=== PATIENT | male | born 1970 | race Caucasian/White ===

== ENCOUNTER 2017-03-21 15:31 | Observation (INO) | payer BC ==
[2017-03-21 15:35] VITALS: BMI 29.0
[2017-03-21 16:00] LABS: BASO % 0.3 % (0-2.0); EOS % 0.8 % (0-4.5); MCH 29.8 pg (25.7-33.7); MEAN CELL VOLUME 87.6 fl (80-96); MEAN PLT VOLUME 8.5 fl (7.5-11.1); NEUT % 82.4 % (42.8-82.8); PLATELET COUNT 200 K/MM3 (134-434); RDW 13.8 % (11.9-15.9); WHITE BLOOD COUNT 9.6 K/mm3 (4.0-10.0)
[2017-03-21 16:25] LABS: INR 1.11 (0.82-1.09); PROTHROMBIN TIME (PATIENT) 12.5 SEC (9.98-11.88)
[2017-03-21 16:27] LABS: ALBUMIN 4.1 g/dl (3.4-5.0); ANION GAP 9 (8-16); BILIRUBIN,TOTAL 0.4 mg/dL (0.2-1.0); CALCIUM 8.8 mg/dL (8.5-10.1); CO2 29 mmol/L (21-32); GLUCOSE,RANDOM 103 mg/dL (74-106); SGOT/AST 10 U/L (15-37); SGPT/ALT 29 U/L (12-78)
[2017-03-21 16:30] LABS: ALK PHOS 101 U/L (45-117); CPK 215 IU/L (39-308); TROPONIN I < 0.02 ng/ml (0.00-0.05)
--- NOTE | 2017-03-21 16:37 | PDOC ---
History of Present Illness - General Chief Complaint: Chest Pain Stated Complaint: CHEST PAIN Time Seen by Provider: 03/21/17 16:37 - History of Present Illness Initial Comments: 46 year old male with PMH of hld, cad s/p inferior STEMI x2 (10/2012 s/p stent, 08/2014 in stent thrombosis), presenting with retrosternal chest pain for the past 3-4 days that is similar to his first [place]. Patient states that his pain started suddenly 3-4 days prior without inciting event. Describes the pain as substernal 08/13-12/14, non-radiating, non-exertional and without co-presenting SOB, nausea, diaphoresis, or palpitations. However, he does state that this is very similar to his previous [place] episode in 2014. His last cardiac imaging was a SPECT was on 05/2015 that demonstrated a fixed inferior wall motion akinesia and an 03/21/17 17:10 Past History - Past Medical History Allergies/Adverse Reactions: Allergies Allergy/AdvReac Type Severity Reaction Status Date / Time Penicillins Allergy unknown Verified 03/21/17 15:34 Home Medications: Ambulatory Orders Aspirin [ASA -] 81 mg PO DAILY 05/29/14 Atorvastatin Ca [Lipitor] 40 mg PO HS 05/29/14 Metoprolol Succinate [Toprol Xl] 75 mg PO DAILY 05/29/14 Ticagrelor [Brilinta] 90 mg PO BID 10/26/14 Cardiac Disorders: Yes ([place]: 10/2012) COPD: No HTN: Yes Hypercholesterolemia: Yes - Surgical History Cardiac Surgery: Yes (STENT X 1: 10/2012) - Suicide/Smoking/Psychosocial Hx Smoking Status: No Smoking History: Never smoked Have you smoked in the past 12 months: No Number of Cigarettes Smoked Daily: 0 Hx Alcohol Use: Yes (SOCIAL) Drug/Substance Use Hx: No Substance Use Type: Alcohol *Physical Exam - Vital Signs Last Vital Signs Temp Pulse Resp BP Pulse Ox 99.2 F 79 17 109/77 98 03/21/17 15:32 03/21/17 16:27 03/21/17 16:27 03/21/17 16:27 03/21/17 16:27 ED Treatment Course - LABORATORY CBC & Chemistry Diagram: 03/21/17 15:53 03/21/17 15:53 - ADDITIONAL ORDERS Additional order review: Laboratory Results 03/21/17 03/21/17 15:53 15:53 PT with INR 12.50 H INR 1.11 Sodium 139 Potassium 3.7 Chloride 101 Carbon Dioxide 29 Anion Gap 9 BUN 11 D Creatinine 1.0 Creat Clearance w eGFR > 60 Random Glucose 103 Calcium 8.8 Total Bilirubin 0.4 D AST 10 L D ALT 29 D Alkaline Phosphatase 101 Creatine Kinase 215 Troponin I < 0.02 Total Protein 8.0 Albumin 4.1 03/21/17 15:53 RBC 4.33 MCV 87.6 MCHC 34.0 RDW 13.8 MPV 8.5 Neutrophils % 82.4 Lymphocytes % 7.9 L D Monocytes % 8.6 Eosinophils % 0.8 Basophils % 0.3 Medical Decision Making - Medical Decision Making 03/21/17 18:32 Spoke to covering physician for Dr. Moffett and he didn't feel that heparin drip was indicated. Will admit patient for tele obs. *DC/Admit/Observation/Transfer - Referrals Referrals: Angelo Meade MD [Primary Care Provider] - - Patient Instructions - Post Discharge Activity
[2017-03-21] MEDS ORDERED: morphine CARPU-JECT 4 MG/1 ML DISP.SYRIN IVPUSH ONE (16:48)
--- NOTE | 2017-03-21 16:48 | PDOC ---
Attending Attestation - HPI HPI: 03/21/17 18:14 46 y/o M with a PMHx of HTN, HLD, COPD, [place] x2 (10/2012, 05/2014) presents to the ED with substernal, non-radiating, non-pleuritic non-exertional chest pain today. Patient did not have any sublingual nitroglycerin left. He usually take Aleve for pain, but did not take any today. He states this pain is similar to the pain he experienced during his last [place]. He reports occasional rectal bleeding. Denies nausea, vomiting, diarrhea. Denies fever, chills. <Mariiln Stevens - Last Filed: 03/21/17 18:14> - Resident Resident Name: Tani Rai - ED Attending Attestation I have performed the following: I have examined & evaluated the patient, The case was reviewed & discussed with the resident, I agree w/resident's findings & plan, Exceptions are as noted - Physicial Exam PE: GENERAL: Awake, alert, and fully oriented, in no acute distress HEAD: No signs of trauma EYES: PERRLA, EOMI, sclera anicteric, conjunctiva clear ENT: Auricles normal inspection, hearing grossly normal, nares patent, oropharynx clear without exudates. Moist mucosa NECK: Normal ROM, supple, no lymphadenopathy, JVD, or masses LUNGS: Breath sounds equal, clear to auscultation bilaterally. No wheezes, and no crackles HEART: Regular rate and rhythm, normal S1 and S2, no murmurs, rubs or gallops ABDOMEN: Soft, nontender, normoactive bowel sounds. No guarding, no rebound. No masses EXTREMITIES: Normal range of motion, no edema. No clubbing or cyanosis. No cords, erythema, or tenderness NEUROLOGICAL: Cranial nerves II through XII grossly intact. Normal speech, normal gait SKIN: Warm, Dry, normal turgor, no rashes or lesions noted. - Medical Decision Making Pt stating the chest pain today is similar to the pain from his second [place]. He is high risk (family history of MIs at very young ages, plus his own history of [place] and a clotted stent in the past). Will admit to tele. <Cori Acosta - Last Filed: 03/22/17 11:20>
[2017-03-21] MEDS ORDERED: morphine SULFATE 4 MG/ML VIAL ONE (16:49)
[2017-03-21] MEDS ORDERED: ASPIRIN 81 MG CHEWABLE TABLETS PO ONE (16:49)
[2017-03-21] MEDS ORDERED: ASPIRIN 81 MG CHEWABLE TABLETS ONE ×2 (16:49→16:54)
[2017-03-21] MEDS ORDERED: NITROGLYCERIN 2% OINTMENT - 1GM PACKET TD ONE ×2 (18:03→18:09)
[2017-03-21] MEDS ORDERED: NITROGLYCERIN SUBLINGUAL 1/150 0.4 MG TAB SL PRN (18:12)
[2017-03-21 21:51] LABS: CHOLESTEROL 134 mg/dL (50-200)
[2017-03-21] MEDS: ATORVASTATIN CA 40 MG TABLET (FP) PO SCH (22:14)
[2017-03-21] MEDS: TICAGRELOR 90 MG TABLET PO SCH (22:14)
[2017-03-21] MEDS ORDERED: morphine SULFATE 4 MG/ML VIAL IVPUSH PRN (22:33)
[2017-03-21] MEDS ORDERED: ONDANSETRON 4 MG/2 ML VIAL IVPB PRN (22:34)
[2017-03-22 00:36] LABS: CPK 178 IU/L (39-308); TROPONIN I < 0.02 ng/ml (0.00-0.05)
[2017-03-22 00:55] LABS: CHOLESTEROL 123 mg/dL (50-200)
[2017-03-22] MEDS ORDERED: PT OWN MED DRAWER 7, Y5N ONE (09:00)
[2017-03-22 09:15] LABS: BASO % 0.4 % (0-2.0); MCH 29.4 pg (25.7-33.7); MCHC 33.3 g/dl (32.0-35.9); MEAN CELL VOLUME 88.5 fl (80-96); MEAN PLT VOLUME 9.1 fl (7.5-11.1); NEUT % 75.8 % (42.8-82.8); PLATELET COUNT 166 K/MM3 (134-434); RDW 14.3 % (11.9-15.9); WHITE BLOOD COUNT 8.5 K/mm3 (4.0-10.0)
[2017-03-22] MEDS: METOPROLOL SUCCINATE 50 MG TAB.SR.24H (FP) PO SCH (09:18)
[2017-03-22] MEDS: ASPIRIN 81 MG CHEWABLE TABLETS PO SCH (09:18)
[2017-03-22] MEDS: TICAGRELOR 90 MG TABLET PO SCH ×2 (09:18→21:18)
[2017-03-22 09:28] LABS: ANION GAP 8 (8-16); CALCIUM 8.2 mg/dL (8.5-10.1); CO2 30 mmol/L (21-32); GLUCOSE,RANDOM 91 mg/dL (74-106)
[2017-03-22 09:39] LABS: CREATININE 1.1 mg/dL (0.7-1.3); THYROID STIMULATING HORMONE 2.14 uIU/ml (0.358-3.74)
--- NOTE | 2017-03-22 09:45 | CONSULT ---
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) Initial ECG with No acute infarct Initital troponin neg - Past Medical History Cardio/Vascular: Yes: Hyperlipdemia, [place] - Alcohol/Substance Use Hx Alcohol Use: Yes (SOCIAL) - Smoking History Smoking history: Never smoked Have you smoked in the past 12 months: No Aproximately how many cigarettes per day: 0 - Social History Occupation: Works in [place] at [employer] Home Medications - Allergies Allergies/Adverse Reactions: Allergies Allergy/AdvReac Type Severity Reaction Status Date / Time Penicillins Allergy unknown Verified 03/21/17 15:34 - Home Medications Home Medications: Ambulatory Orders Aspirin [ASA -] 81 mg PO DAILY 05/29/14 Atorvastatin Ca [Lipitor] 40 mg PO HS 05/29/14 Metoprolol Succinate [Toprol Xl] 75 mg PO DAILY 05/29/14 Ticagrelor [Brilinta] 90 mg PO BID 10/26/14 Family Disease History - Family Disease History Family Disease History: Heart Disease: Grandparent, Father, Mother Physical Exam Vital Signs: Vital Signs Temperature 99.5 F 03/22/17 08:00 Pulse Rate 75 03/22/17 08:00 Respiratory Rate 20 03/22/17 08:00 Blood Pressure 104/57 03/22/17 08:00 O2 Sat by Pulse Oximetry (%) 99 03/22/17 07:45 Constitutional: Yes: No Distress Eyes: Yes: WNL HENT: Yes: WNL Neck: Yes: WNL Cardiovascular: Yes: Regular Rate and Rhythm Respiratory: Yes: WNL, CTA Bilaterally Gastrointestinal: Yes: Normal Bowel Sounds, Tenderness ((+) tenderness in epigastric area (reporoducible)) Musculoskeletal: Yes: WNL Extremities: Yes: WNL Edema: No Labs: CBC, BMP 03/22/17 07:00 03/22/17 07:00 Imaging - Results EKG: Image Reviewed (ECG at 03/21/2017 at 15:36 NSR with inferior Qs. ECG on at 22:43 SR with inferior Qs.) Assessment/Plan 46 yo male with known CAD s/p prior PCI with atypical chest pain 1) Chest pain -Has atypical quality (reproducible on palpation in epigastric area) -Initial ECG unremarkable and 1st troponin negative -Would d/c Nitropaste -Continue DAPT with asa and ticag, bb and statin -Will give trial of NSAID for MSK etiology and PPI -Dr. Mathew to see in AM who knows him well and can review his latest stress test. -Should have one more troponin checked. *
[2017-03-22] MEDS: PANTOPRAZOLE 40 MG TABLET (FP) PO SCH (09:59)
[2017-03-22] MEDS ORDERED: IBUPROFEN 400 MG TABLET (FP) PO ONE (10:00)
--- NOTE | 2017-03-22 11:40 | HP ---
Admitting History and Physical - Primary Care Physician PCP: Angelo Meade - Admission Chief Complaint: Chest Pain History of Present Illness: 46 yrs old man active H/O CAD IW STEMI 2012 with NISSA to LPL1, then stent thrombosis in 2014 with rpt NISSA to LPL1, presents to the ED with substernal, non-radiating, non-pleuritic non-exceptional chest pain today. Patient did not have any sublingual nitroglycerin left. He usually take Aleve for pain, but did not take any today. He states this pain is similar to the pain he experienced during his last [place]. He reports occasional rectal bleeding. Denies nausea, vomiting, diarrhea. Denies fever, chills.Patient says characteristics of pain simillar to previous [place] pain although pain aggravated with pressure on lower sternum and bending chest wall, patient dis some [employer] 5-7 days ago, - Past Medical History Cardiovascular: Yes: Hyperlipdemia, [place] - Smoking History Smoking history: Never smoked Have you smoked in the past 12 months: No Aproximately how many cigarettes per day: 0 - Alcohol/Substance Use Hx Alcohol Use: Yes (SOCIAL) - Social History Occupation: Works in [employer] Home Medications - Allergies Allergies/Adverse Reactions: Allergies Allergy/AdvReac Type Severity Reaction Status Date / Time Penicillins Allergy unknown Verified 03/21/17 15:34 - Home Medications Home Medications: Ambulatory Orders Aspirin [ASA -] 81 mg PO DAILY 05/29/14 Atorvastatin Ca [Lipitor] 40 mg PO HS 05/29/14 Metoprolol Succinate [Toprol Xl] 75 mg PO DAILY 05/29/14 Ticagrelor [Brilinta] 90 mg PO BID 10/26/14 Family Disease History - Family Disease History Family Disease History: Heart Disease: Grandparent, Father, Mother Review of Systems - Review of Systems Constitutional: reports: No Symptoms. denies: Chills, Diaphoresis HENT: denies: Difficult Swallowing, Ear Discharge Neck: denies: Decreased ROM, Lumps, Pain on Movement Cardiovascular: reports: Chest Pain. denies: Edema, Palpitations, Shortness of Breath Respiratory: denies: Cough, Exercise Intolerance, Hemoptysis Gastrointestinal: denies: Abdominal Pain, Bloating, Constipation Genitourinary: denies: Burning, Discharge Musculoskeletal: denies: Back Pain, Crepitus Integumentary: denies: Blister, Bruising Neurological: denies: Change in LOC, Change in Speech, Confusion, Dizziness Endocrine: denies: Excessive Sweating, Flushing Hematology/Lymphatic: denies: Easily Bruised, Excessive Bleeding Psychiatric: denies: Altered Sleep Pattern, Anxiety Pain Intensity: 6 Physical Examination Vital Signs: Vital Signs Temperature 99.5 F 03/22/17 08:00 Pulse Rate 75 03/22/17 08:00 Respiratory Rate 20 03/22/17 08:00 Blood Pressure 104/57 03/22/17 08:00 O2 Sat by Pulse Oximetry (%) 99 03/22/17 07:45 Middle aged man comfortable not in distress HEENT: Mm moist, no anemia, PERRLA EOMI NECK: No JVD No Bruit CHEST:Tenderness around lower sternum, CTA B/L CVS: S1S2 r no m/g/r ABD: No distention, non tender Bs + EXT: No edema feet, no calf tenderness, Pulses + PRODUCE INSPECTOR: [id number] focal Labs: CBC, BMP 03/22/17 07:00 03/22/17 07:00 Imaging - Results X-ray: Report Reviewed (normal) EKG: Report Reviewed (62 NSR with inferior Qs. ECG on 03/21/2017 at 22:43 SR with inferior Qs.)) Problem List - Problems (1) Chest pain Assessment/Plan: Atypical reproducible will cont pain med Motrin and percocet PRN, normal serial , CE and non dynamic EKG F/U TSH, Lipid serial trop I , ECHO and cardiology input cont all home meds Code(s): R07.9 - CHEST PAIN, UNSPECIFIED (2) CAD (coronary artery disease) Assessment/Plan: s/p stent twice cont all home medications Code(s): I25.10 - ATHSCL HEART DISEASE OF [place] CORONARY ARTERY W/O ANG PCTRS Qualifiers: Coronary Disease-Associated Artery/Lesion type: [place] artery [place] vs. transplanted heart: [place] heart Associated angina: with unspecified angina Qualified Code(s): I25.119 - Atherosclerotic heart disease of [place] coronary artery with unspecified angina pectoris (3) HTN (hypertension) Assessment/Plan: well controlled cont all home meds Code(s): I10 - ESSENTIAL (PRIMARY) HYPERTENSION (4) High blood cholesterol level Assessment/Plan: on statin Code(s): E78.00 - PURE HYPERCHOLESTEROLEMIA, UNSPECIFIED
[2017-03-22 21:18] LABS: CPK 131 IU/L (39-308); TROPONIN I < 0.02 ng/ml (0.00-0.05)
[2017-03-22] MEDS: ATORVASTATIN CA 40 MG TABLET (FP) PO SCH (21:18)
--- NOTE | 2017-03-22 22:38 | PN ---
Progress Note, Physician Chief Complaint: cp History of Present Illness: states the cp/heaviness was sternum location, worse with inspiration. better when stood up. mild R scapular and L lower back pain as well, not pleuritic. similar quality to prior [place] pain, though can't recall if that was pleuritic no sob, palpit, syncope cp now resolved - Current Medication List Current Medications: Active Medications Aspirin (Asa -) 81 mg PO DAILY [facility] Last Admin: 03/22/17 09:18 Dose: 81 mg Atorvastatin Calcium (Lipitor -) 40 mg PO HS [facility] Last Admin: 03/22/17 21:18 Dose: 40 mg Metoprolol Succinate (Toprol Xl -) 75 mg PO DAILY [facility] Last Admin: 03/22/17 09:18 Dose: 75 mg Nitroglycerin (Nitrostat -) 0.4 mg SL Q5M PRN PRN Reason: FOR CHEST PAIN Last Admin: 03/21/17 21:17 Dose: 0.4 mg Ondansetron HCl (Zofran Injection) 4 mg IVPB Q6H PRN PRN Reason: NAUSEA AND/OR VOMITING Pantoprazole Sodium (Protonix -) 40 mg PO DAILY [facility] Last Admin: 03/22/17 09:59 Dose: 40 mg Ticagrelor (Brilinta -) 90 mg PO BID [facility] Last Admin: 03/22/17 21:18 Dose: 90 mg - Objective Vital Signs: Vital Signs Temperature 97.0 F L 03/22/17 21:38 Pulse Rate 68 03/22/17 21:38 Respiratory Rate 20 03/22/17 21:38 Blood Pressure 127/67 03/22/17 21:38 O2 Sat by Pulse Oximetry (%) 100 03/22/17 21:40 Constitutional: Yes: Well Nourished, No Distress, Calm Cardiovascular: Yes: Regular Rate and Rhythm, S1, S2. No: Gallop, Murmur, Rub Respiratory: Yes: Regular, CTA Bilaterally. No: Accessory Muscle Use, Rales, Wheezes Extremities: No: Cold Edema: No Neurological: Yes: Alert, Oriented Psychiatric: No: Agitated Labs: CBC, BMP 03/22/17 07:00 03/22/17 07:00 INR, PTT INR 1.11 (0.82-1.09) 03/21/17 15:53 - ....Imaging EKG: Other (tele: NSR) Assessment/Plan EKG #1: NSR, inferior q waves with nonsp TWAs (no change vs prior in office ) #2: no change [facility] 2014: thrombotic occlusion LPL 1, in-stent--Promus NISSA. 50-60% mid LAD, 50- 60% d LAD MPI 05/22: 9:59 min (11 METs). no STs. inferolateral scar with no ischemia. EF 56 % (inferolateral akinesis) home meds: aspirin, ticagrelor 90 bid, lovaza 2 bid, atorva 80, atenolol 25 h/o CAD, here with atypical chest pain -prior h/o IW STEMI 2012 with NISSA to LPL1, then stent thrombosis (when plavix stopped after 19 months post-PCI) in 2014 with rpt NISSA to LPL1 -no angina or ischemia since, preserved EF -here with atypical cp, reproducible on palpation in epigastric area initially. desription of sx's is non-anginal -serial ecg's unchanged vs baseline (no ischemia), trop neg x3 -cp resolved here, ? due to NSAID trial. -no rub or ekg changes, suspect mskel etiology > pericarditis. -ok for d/c home, cont home meds (plan is to continue DAPT at least 3 yrs) -would not rec standing NSAID regimen. -will draw CRP for baseline prior to discharge--pt informed to call me if pain recurs, and he understood instrxns
[2017-03-23] MEDS ORDERED: PT OWN MED DRAWER 7, Y5N ONE (09:39)
[2017-03-23 09:55] VITALS: BP 120/66; PULSE 76; TEMP 98.2
[2017-03-23] MEDS: PANTOPRAZOLE 40 MG TABLET (FP) PO SCH (09:56)
[2017-03-23] MEDS: ASPIRIN 81 MG CHEWABLE TABLETS PO SCH (09:56)
[2017-03-23] MEDS: METOPROLOL SUCCINATE 50 MG TAB.SR.24H (FP) PO SCH (09:57)
[2017-03-23] MEDS: TICAGRELOR 90 MG TABLET PO SCH (09:57)
--- NOTE | 2017-03-23 12:14 | DS ---
Physical Examination Vital Signs: Vital Signs Temperature 36.8 C 03/23/17 08:00 Pulse Rate 76 03/23/17 08:00 Respiratory Rate 14 03/23/17 09:00 Blood Pressure 120/66 03/23/17 08:00 O2 Sat by Pulse Oximetry (%) 100 03/23/17 09:00 Constitutional: Yes: Well Nourished, No Distress, Calm Cardiovascular: Yes: Regular Rate and Rhythm. No: Gallop, Murmur, Rub Respiratory: Yes: Regular, CTA Bilaterally. No: Rales, Rhonchi, Wheezes Gastrointestinal: Yes: Normal Bowel Sounds, Soft. No: Distention, Tenderness Extremities: Yes: WNL Edema: No Labs: CBC, BMP 03/22/17 07:00 03/22/17 07:00 Discharge Summary Reason For Visit: CP 2/ HIGH RISK OF ACUTE Current Active Problems Chest pain (Acute) HTN (hypertension) (Acute) High blood cholesterol level (Acute) Hospital Course: (1) Chest pain Code(s): R07.9 - CHEST PAIN, UNSPECIFIED (2) CAD (coronary artery disease) Code(s): I25.10 - ATHSCL HEART DISEASE OF [place] CORONARY ARTERY W/O ANG PCTRS Qualifiers: Coronary Disease-Associated Artery/Lesion type: [place] artery [place] vs. transplanted heart: [place] heart Associated angina: with unspecified angina Qualified Code(s): I25.119 - Atherosclerotic heart disease of [place] coronary artery with unspecified angina pectoris (3) HTN (hypertension) Code(s): I10 - ESSENTIAL (PRIMARY) HYPERTENSION (4) High blood cholesterol level Code(s): E78.00 - PURE HYPERCHOLESTEROLEMIA, UNSPECIFIED Mr Cuadra is a pleasant 46 year old male who comes in with chest pain. He was admitted to telemetry under observation. Cardiac enzyme were checked and negative. He had an ECHO which was read as normal. He was seen by cardiology, will have a CRP sent prior to discharge. He is currently stable for discharge after CRP is sent with follow up with his PCP and cardiology. Condition: Stable - Instructions Diet, Activity, Other Instructions: low fat diet. Resume previous activity Referrals: Angelo Meade MD [Primary Care Provider] - Guido Mathew MD [Staff Physician] - Disposition: HOME - Home Medications Comprehensive Discharge Medication List: Ambulatory Orders Aspirin [ASA -] 81 mg PO DAILY 05/29/14 Atorvastatin Ca [Lipitor] 40 mg PO HS 05/29/14 Metoprolol Succinate [Toprol Xl] 75 mg PO DAILY 05/29/14 Ticagrelor [Brilinta] 90 mg PO BID 10/26/14 Nitroglycerin Sublingual [Nitrostat -] 0.4 mg SL Q5M PRN #30 tab 03/23/17
--- NOTE | 2017-03-24 01:40 | EKG ---
Test Reason : Blood Pressure : / mmHG Vent. Rate : 076 BPM Atrial Rate : 076 BPM P-R Int : 138 ms QRS Dur : 084 ms QT Int : 350 ms P-R-T Axes : 050 035 -21 degrees QTc Int : 393 ms SINUS RHYTHM BASELINE ARTIFACT POSSIBLE INFERIOR INFARCT (CITED ON OR BEFORE 21-MAR-2017) ABNORMAL ECG WHEN COMPARED WITH ECG OF 21-MAR-2017 15:36, NO SIGNIFICANT CHANGE WAS FOUND Confirmed by CLIFFORD DELVALLE, MARY ([id number]) on 03/24/2017 1:40:17 AM Referred By: Confirmed By:MARY HORTON MD
--- NOTE | 2017-03-24 01:41 | EKG ---
Test Reason : Blood Pressure : / mmHG Vent. Rate : 088 BPM Atrial Rate : 088 BPM P-R Int : 138 ms QRS Dur : 094 ms QT Int : 328 ms P-R-T Axes : 058 047 008 degrees QTc Int : 396 ms NORMAL SINUS RHYTHM POSSIBLE INFERIOR INFARCT , AGE UNDETERMINED ABNORMAL ECG WHEN COMPARED WITH ECG OF 21-MAY-2015 08:57, T WAVE VARIATION Confirmed by MARY HORTON MD ([id number]) on 03/24/2017 1:41:06 AM Referred By: Confirmed By:MARY HORTON MD
== END 2017-03-23 14:11 | disposition home or self-care (01) ==
LOC: JER 15:31 → JERBED 18:19 → J4W 20:30
PROVIDERS: ADMIT Internal Medicine; ATTEND Internal Medicine
PROC: 3E033NZ Introduction of Analgesics, Hypnotics, Sedatives into Peripheral Vein, Percutaneous Approach (ICD-10-PCS; principal; 2017-03-21)
DX: R07.89 Other chest pain (principal); I10 Essential (primary) hypertension; I25.119 Atherosclerotic heart disease of native coronary artery with unspecified angina pectoris; I25.2 Old myocardial infarction; E78.5 Hyperlipidemia, unspecified; Z95.5 Presence of coronary angioplasty implant and graft; Z88.0 Allergy status to penicillin; Z79.82 Long term (current) use of aspirin
CPT/HCPCS: 36415; 71010-TC; 80048; 80053; 80061; 82272; 82550; 82553; 83036; 83605; 83721; 84443; 84484; 85025; 85610; 86140; 93005; 93010; 93306-TC; 99285-25; G0378

== ENCOUNTER 2019-10-13 18:43 | Inpatient (IN) | payer BC ==
--- NOTE | 2019-10-13 18:52 | PDOC ---
Rapid Medical Evaluation Time Seen by Provider: 10/13/19 18:44 Medical Evaluation: Allergies Allergy/AdvReac Type Severity Reaction Status Date / Time Penicillins Allergy unknown Verified 03/21/17 15:34 10/13/19 18:44 I performed a brief in-person evaluation of this patient. Pt is a 49 y/o male who presents to the ED with MSCP that started about 2:30pm. He took Nitro which helped for a few minutes, took another Nitro with relief for a few minutes and the pain returned. He had 2 MIs in the past and has 2 stents placed. Has HTN and HLD. Pertinent physical exam findings: speaking in full and complete sentences, nontoxic, no respiratory distress I have ordered the following: cardiac labs, saline lock, ekg, cxr Patient to proceed to ED for further evaluation. Discharge Disposition - Diagnosis Chest pain - Referrals - Patient Instructions - Post Discharge Activity
[2019-10-13 18:54] VITALS: BMI 29.7
[2019-10-13 19:48] LABS: BASO % 0.3 % (0-2.0); EOS % 0.7 % (0-4.5); HEMATOCRIT 36.2 % (35.4-49); HEMOGLOBIN 12.5 GM/dL (11.7-16.9); LYMPH % 11.8 % (8-40); MCH 31.3 pg (25.7-33.7); MCHC 34.4 g/dl (32.0-35.9); MEAN PLT VOLUME 8.6 fl (7.5-11.1); MONO % 7.1 % (3.8-10.2); NEUT % 80.1 % (42.8-82.8); PLATELET COUNT 159 K/MM3 (134-434); RBC 3.98 M/mm3 (4.00-5.60); RDW 13.7 % (11.9-15.9); WHITE BLOOD COUNT 8.8 K/mm3 (4.0-10.0)
--- NOTE | 2019-10-13 19:52 | PN ---
Progress Note (short form) - Note Progress Note: Patient called service with chest pain since early afternoon and was referred to ER for evaluation. Briefly, 49M with known CAD s/p inferior STEMI 2012 and again in 2014 with stent thrombosis. Developed central chest pain/tightness [place] beach which he described as similar to his anginal /[place] pain but less intense and without the nausea/SOB and back pain he had. It frightened him enough to take 2 SLNTG which he said completely relieved the pain for a few minutes, then recurred. He also describes a pleuritic component but no cough/fever/chills/GI symptoms. REC: 1. Telemetry 2. Serial ECGs/enzymes/CXR/Labs/echo in AM 3. Home meds for now. 4. SLNTG PRN 5. Further diagnostic plan pending overnight clinical course/cardiac enzymes. 6. Keep NPO after 12am 7. Discussed with ER attending. Full consult to follow in AM
[2019-10-13] MEDS ORDERED: ASPIRIN 81 MG CHEWABLE TABLETS PO ONE (19:54)
[2019-10-13 19:56] LABS: INR 1.03 (0.83-1.09); PROTHROMBIN TIME (PATIENT) 12.1 SEC (9.7-13.0)
[2019-10-13 19:58] LABS: ACTIVATED PTT 28.1 SECONDS (25.2-36.5)
[2019-10-13] MEDS ORDERED: ASPIRIN 81 MG CHEWABLE TABLETS ONE (20:00)
[2019-10-13] MEDS ORDERED: NITROGLYCERIN SUBLINGUAL 1/150 0.4 MG TAB SL PRN (20:01)
[2019-10-13 20:24] LABS: ALBUMIN 4.1 g/dl (3.4-5.0); ALK PHOS 89 U/L (45-117); ANION GAP 11 MMOL/L (8-16); BILIRUBIN,TOTAL 0.8 mg/dL (0.2-1); BLOOD UREA NITROGEN 17.3 mg/dL (7-18); CHLORIDE 103 mmol/L (98-107); CO2 27 mmol/L (21-32); CREATININE 1.4 mg/dL (0.55-1.3); GLUCOSE,RANDOM 133 mg/dL (74-106); MAGNESIUM 2.1 mg/dL (1.8-2.4); POTASSIUM 3.4 mmol/L (3.5-5.1); SGOT/AST 21 U/L (15-37); SGPT/ALT 50 U/L (13-61); SODIUM 141 mmol/L (136-145); TOT PROT 7.5 g/dl (6.4-8.2)
--- NOTE | 2019-10-13 20:24 | PDOC ---
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 The chest pain is non-exertional, non-radiating, with no accompanying SOB, nausea, vomiting, or diaphoresis. He also admits to pleuritic chest pain. He went home and took .4mg of nitroglycerin which relived the tightness for 5 minutes. He reports that this feels like his second DC which also only presented with chest tightness, just not as severe. He spoke with Dr. Valderrama who is covering for Dr. Mathew who told him to come to the ER for evaluation. 10/13/19 20:24 PMH: STEMI x2 s/p 2 stents (2012 and thrombosis of stents in 2014), HTN, HLD Meds: See nurses note Allergies: Denies 10/14/19 21:06 Past History - Medical History Allergies/Adverse Reactions: Allergies Allergy/AdvReac Type Severity Reaction Status Date / Time Penicillins Allergy unknown Verified 10/13/19 18:54 Home Medications: Ambulatory Orders Aspirin [ASA -] 81 mg PO DAILY 05/29/14 Atorvastatin Ca [Lipitor] 40 mg PO HS 05/29/14 Nitroglycerin Sublingual [Nitrostat -] 0.4 mg SL Q5M PRN #30 tab 03/23/17 Allopurinol [Zyloprim -] 100 mg PO DAILY 10/14/19 Atenolol [Tenormin -] 25 mg PO DAILY 10/14/19 Clopidogrel Bisulfate [Clopidogrel] 75 mg PO Q3D 10/14/19 Lisinopril [Prinivil] 5 mg PO DAILY 30 Days #30 tablet 10/14/19 Cardiac Disorders: Yes (DC: 10/2012) COPD: No HTN: Yes Hypercholesterolemia: Yes - Surgical History Cardiac Surgery: Yes (STENT X 1: 10/2012) - Psycho-Social/Smoking History Smoking Status: No Smoking History: Never smoked Have you smoked in the past 12 months: No Number of Cigarettes Smoked Daily: 0 Information on smoking cessation initiated: No - Substance Abuse Hx (Audit-C & DAST Scrn) How often the patient has a drink containing alcohol: Monthly or less Number of drinks the patient has on a typical day: 3 or 4 How often the patient has six or more drinks on one occasion: Never Score: In Men: 4 or > Positive; In Women: 3 or > Positive: 2 Screen Result (Pos requires Nsg. Audit-10AR): Negative In the last yr the pt used illegal drug/Rx for NonMed reason: No Score: Yes response is considered Positive: 0 Screen Result (Positive result requires Nsg. DAST-10): Negative Review of Systems - Review of Systems Able to Perform ROS?: Yes Constitutional: No: Chills, Diaphoresis, Weakness HEENTM: No: Eye Pain, Blurred Vision Respiratory: No: SOB with Exertion, Wheezing Cardiac (ROS): Yes: Chest Pain, Chest Tightness. No: Palpitations ABD/GI: No: Constipated, Diarrhea : No: Burning, Dysuria Musculoskeletal: No: Joint Pain, Muscle Weakness Neurological: No: Numbness, Paresthesia Endocrine: No: Excessive Sweating, Flushing Hematologic/Lymphatic: Yes: Blood Clots. No: Anemia *Physical Exam - Vital Signs Last Vital Signs Temp Pulse Resp BP Pulse Ox 99.6 F 97 H 18 158/78 100 10/13/19 18:51 10/13/19 18:51 10/13/19 18:51 10/13/19 18:51 10/13/19 18:51 - Physical Exam General Appearance: Yes: Appropriately Dressed, Mild Distress HEENT: positive: EOMI Neck: positive: Trachea midline Respiratory/Chest: positive: Lungs Clear, Normal Breath Sounds. negative: Chest Tender, Respiratory Distress Cardiovascular: positive: Regular Rhythm, Regular Rate, S1, S2 Vascular Pulses: Dorsalis-Pedis (R): 2+, Doralis-Pedis (L): 2+ Gastrointestinal/Abdominal: positive: Normal Bowel Sounds, Soft Extremity: positive: Normal Capillary Refill, Normal Range of Motion Integumentary: positive: Normal Color, Warm Neurologic: positive: Fully Oriented, Alert, Normal Mood/Affect Heart Score/ECG Review - History History: Highly suspicious - Electrocardiogram EKG: Non specific repolarization disturbance - Age Age: 45-65 - Risk Factors Risk Factors Heart Score: Yes Hx Hypercholesterolemia, Yes Hx Hypertension, Yes Positive family hx of cardiac disease Based on the list above the patient has:: >/=3 risk factors or Hx atherosclerotic disease - Troponin Troponin: </= normal limit - Score Heart Score - Total: 6 ED Treatment Course - LABORATORY CBC & Chemistry Diagram: 10/14/19 06:18 10/14/19 06:18 - ADDITIONAL ORDERS Additional order review: Laboratory Results 10/13/19 19:24 PT with INR 12.10 INR 1.03 PTT (Actin FS) 28.1 10/13/19 19:24 RBC 3.98 L MCV 91.0 MCHC 34.4 RDW 13.7 MPV 8.6 Neutrophils % 80.1 Lymphocytes % 11.8 Monocytes % 7.1 Eosinophils % 0.7 Basophils % 0.3 - Medications Given in the ED: ED Medications Discontinued Medications Generic Name Dose Route Start Last Admin Trade Name Freq PRN Reason Stop Dose Admin Aspirin 324 mg 10/13/19 19:54 10/13/19 20:02 Asa - PO 10/13/19 19:55 324 mg ONCE ONE Administration Medical Decision Making - Medical Decision Making This is a 49 y/o male with a PMH of inferior DC x2 presenting due to chest tig htness which began 4 [place] [address] [place]. Valderrama sent him to ED for cardiac work-up. -EKG -CBC -CMP -Cardiac profile - CXR -Coags 10/13/19 20:30 Patient is complaining of worsening chest pain which is now radiating to his right shoulder. Repeat EKG is unchanged Call put out to Dr. Valderrama 10/13/19 21:27 Trop came back negative Dr. Valderrama wants to anticoagulate with Lovenox Echocardiogram in a.m. Patient to be admitted to [facility] 10/13/19 21:50 Discharge - Discharge Information Problems reviewed: Yes Clinical Impression/Diagnosis: Chest pain, Chest pain with high risk of acute coronary syndrome Condition: Stable Disposition: HOME - Admission Yes - Follow up/Referral - Patient Discharge Instructions - Post Discharge Activity
--- NOTE | 2019-10-13 20:40 | PDOC ---
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 CP character similar but not same as prior NV, this time w/ pleuritic component Consider ACS, given pleuritic component and different character of px, less likely but consider PE f/u labs, cxr, ekg, trend trop, d-dimer admit for ACS w/u, echo and complete cards consult in AM will keep Dr Valderrama up to date on pts progress Spoke with Dr Valderrama who recommended AC 10/13/19 21:40 Discharge - Discharge Information Problems reviewed: Yes Clinical Impression/Diagnosis: Chest pain, Chest pain with high risk of acute coronary syndrome - Follow up/Referral Referrals: Angelo Meade MD [Primary Care Provider] - - Patient Discharge Instructions - Post Discharge Activity
[2019-10-13] MEDS ORDERED: ENOXAPARIN NA (PORCINE) 30 MG/0.3 ML DISP.SYRIN SQ SCH (21:30)
[2019-10-13] MEDS ORDERED: ENOXAPARIN NA (PORCINE) 30 MG/0.3 ML DISP.SYRIN SQ ONE (22:01)
[2019-10-14] MEDS ORDERED: HEPARIN NA (PORCINE) 5,000 UNITS/ML 1ML VIAL IVPUSH PRN ×2 (00:23)
[2019-10-14] MEDS ORDERED: HEPARIN - 25,000 UNIT in SODIUM CHLORIDE 495 ML IV SCH (00:30)
[2019-10-14] MEDS ORDERED: ATORVASTATIN CA 80 MG TABLET (FP) PO ONE (00:45)
--- NOTE | 2019-10-14 00:46 | HP ---
<Blanca Bar - Last Filed: 10/14/19 01:52> CHIEF COMPLAINT: Chest pain non exertional HISTORY OF PRESENT ILLNESS: Pt is a 49yo M with PMHx of PR x2 s/p stents in 2012 and 2014, HLD, and HTN presenting with chest pain that started around 2pm. Pt states he was [place] the [place], nonexertional when the chest pain began suddenly on his L side that was 7/10. Pt states he also had associated pleuritic pain which is still present in the ED. Pt states this pain did not radiate anywhere else. After the chest pain started, he drove home and took 0.4 sublingual nitroglycerin x2, that caused the chest pain to subside for 5 minutes before returning. 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 Valderrama to go to the ED due to his presenting symptoms and history. Pain is nonreproducible. Upon arrival to the ED, pt was given 325 mg ASA and EKG showed no changes, trops negative x2. Pt admits to significant family history, with father having hx of 6 PR's, at 50 and mother with 3xCABG. PAST MEDICAL HISTORY: As above PAST SURGICAL HISTORY: Denies Social History: Smoking: Never smoker Alcohol: Social Drugs: Denies Allergies Penicillins Allergy (Verified 10/13/19 18:54) unknown reaction occurred as a child HOME MEDICATIONS: Home Medications Medication Instructions Recorded Aspirin [ASA -] 81 mg PO DAILY 05/29/14 Atorvastatin Ca [Lipitor] 40 mg PO HS 05/29/14 Metoprolol Succinate [Toprol Xl] 75 mg PO DAILY 05/29/14 Ticagrelor [Brilinta] 90 mg PO BID 10/26/14 Nitroglycerin Sublingual 0.4 mg SL Q5M PRN #30 tab 03/23/17 [Nitrostat -] REVIEW OF SYSTEMS CONSTITUTIONAL: Absent: fever, chills, diaphoresis, generalized weakness, malaise, loss of appetite, weight change HEENT: Absent: rhinorrhea, nasal congestion, throat pain, throat swelling, difficulty swallowing, mouth swelling, ear pain, eye pain, visual changes CARDIOVASCULAR: Admits to chest pain, pleuritic Absent: syncope, palpitations, irregular heart rate, lightheadedness, peripheral edema RESPIRATORY: Absent: cough, shortness of breath, dyspnea with exertion, orthopnea, wheezing, stridor, hemoptysis GASTROINTESTINAL: Absent: abdominal pain, abdominal distension, nausea, vomiting, diarrhea, constipation, melena, hematochezia GENITOURINARY: Absent: dysuria, frequency, urgency, hesitancy, hematuria, flank pain, genital pain MUSCULOSKELETAL: Absent: myalgia, arthralgia, joint swelling, back pain, neck pain SKIN: Absent: rash, itching, pallor HEMATOLOGIC/IMMUNOLOGIC: Absent: easy bleeding, easy bruising, lymphadenopathy, frequent infections ENDOCRINE: Absent: unexplained weight gain, unexplained weight loss, heat intolerance, cold intolerance NEUROLOGIC: Absent: headache, focal weakness or paresthesias, dizziness, unsteady gait, seizure, mental status changes, bladder or bowel incontinence PSYCHIATRIC: Absent: anxiety, depression, suicidal or homicidal ideation, hallucinations. PHYSICAL EXAMINATION Vital Signs - 24 hr 10/13/19 10/13/19 18:51 20:21 Temperature 99.6 F Pulse Rate 97 H Pulse Rate [ 88 Apical] Respiratory 18 16 Rate Blood Pressure 158/78 Blood Pressure 127/86 [Left Arm] O2 Sat by Pulse 100 98 Oximetry (%) GENERAL: Awake, alert, and fully oriented, in no acute distress. HEAD: Normal with no signs of trauma. EYES: Pupils equal, round and reactive to light, extraocular movements intact, sclera anicteric, conjunctiva clear. No lid lag. EARS, NOSE, THROAT: Ears normal, nares patent, oropharynx clear without exudates. Moist mucous membranes. NECK: Normal range of motion, supple without lymphadenopathy, JVD, or masses. LUNGS: Breath sounds equal, clear to auscultation bilaterally. No wheezes, and no crackles. No accessory muscle use. HEART: Regular rate and rhythm, normal S1 and S2 without murmur, rub or gallop. ABDOMEN: Soft, nontender, not distended, normoactive bowel sounds, no guarding, no rebound, no masses. No hepatomegaly or splenomegaly. MUSCULOSKELETAL: Normal range of motion at all joints. No bony deformities or tenderness. No CVA tenderness. UPPER EXTREMITIES: 2+ pulses, warm, well-perfused. No cyanosis. No clubbing. No peripheral edema. LOWER EXTREMITIES: 2+ pulses, warm, well-perfused. No calf tenderness. No peripheral edema. NEUROLOGICAL: Cranial nerves II-XII intact. Normal speech. Normal gait. PSYCHIATRIC: Cooperative. Good eye contact. Appropriate mood and affect. SKIN: Warm, dry, normal turgor, no rashes or lesions noted, normal capillary refill. Laboratory Results - last 24 hr 10/13/19 10/13/19 10/13/19 19:24 19:24 19:24 WBC 8.8 RBC 3.98 L Hgb 12.5 Hct 36.2 MCV 91.0 MCH 31.3 MCHC 34.4 RDW 13.7 Plt Count 159 MPV 8.6 Absolute Neuts (auto) 7.0 Neutrophils % 80.1 Lymphocytes % 11.8 Monocytes % 7.1 Eosinophils % 0.7 Basophils % 0.3 Nucleated RBC % 0 PT with INR 12.10 INR 1.03 PTT (Actin FS) 28.1 D-Dimer Sodium 141 Potassium 3.4 L Chloride 103 Carbon Dioxide 27 Anion Gap 11 BUN 17.3 Creatinine 1.4 H Est GFR (CKD-EPI)AfAm 67.42 Est GFR (CKD-EPI)NonAf 58.17 Random Glucose 133 H Calcium 9.0 Magnesium 2.1 Total Bilirubin 0.8 AST 21 ALT 50 Alkaline Phosphatase 89 Creatine Kinase 368 H Creatine Kinase Index 0.2 CK-MB (CK-2) 1.1 Troponin I < 0.02 Total Protein 7.5 Albumin 4.1 10/13/19 10/13/19 19:24 22:40 WBC RBC Hgb Hct MCV MCH MCHC RDW Plt Count MPV Absolute Neuts (auto) Neutrophils % Lymphocytes % Monocytes % Eosinophils % Basophils % Nucleated RBC % PT with INR INR PTT (Actin FS) D-Dimer 264 Sodium Potassium Chloride Carbon Dioxide Anion Gap BUN Creatinine Est GFR (CKD-EPI)AfAm Est GFR (CKD-EPI)NonAf Random Glucose Calcium Magnesium Total Bilirubin AST ALT Alkaline Phosphatase Creatine Kinase Creatine Kinase Index CK-MB (CK-2) Troponin I < 0.02 Total Protein Albumin ASSESSMENT/PLAN: Pt is a 49 yo M with PMHx of PR s/p stents x2, HTN, HLD, presenting with nonexertional CP that did not improve with sublingual nitroglycerin. EKG shows no acute changes and trops negative x2. On heparin drip and NPO after midnight. Admitted for unstable angina. #Unstable angina -Heart score 5 -Cardiology (Dr. Valderrama) advised to begin heparin gtt, NPO after midnight -Echo and EKG in AM -Trop negative x2, trop#3 pending with AM labs -Continue home meds after med rec completed due to unsure history of medications by pt #JANEY -Cr 1.4 (baseline 1.1) -Receiving NS via heparin drip; resume NS after heparin drip completed #Hyperglycemia -Blood glucose 133 -F/u on HgbA1c #Hx of HTN -Continued home atenolol 25mg #Hx of HLD -Lipitor 80mg given -Continued lipitor 40mg daily tomorrow FEN -NS being given via heparin drip; continue NS once heparin drip completed Prophylaxis -On heparin drip Dispo: Admitted to [facility] for unstable angina. Cardiology following, started on heparin drip and NPO after midnight. Follow up on A1c to determine if new diagnosed diabetes. Continue to monitor for symptoms. ATTENDING PHYSICIAN STATEMENT I saw and evaluated the patient. I reviewed the resident's note and discussed the case with the resident. I agree with the resident's findings and plan as documented. SUBJECTIVE: OBJECTIVE: ASSESSMENT AND PLAN: <Lois Meade - Last Filed: 10/14/19 05:51> CHIEF COMPLAINT: PCP: HISTORY OF PRESENT ILLNESS: ER course was notable for: (1) (2) (3) Recent Travel: PAST MEDICAL HISTORY: PAST SURGICAL HISTORY: Social History: Smoking: Alcohol: Drugs: Allergies Penicillins Allergy (Verified 10/13/19 18:54) unknown reaction occurred as a child HOME MEDICATIONS: Home Medications Medication Instructions Recorded Aspirin [ASA -] 81 mg PO DAILY 05/29/14 Atorvastatin Ca [Lipitor] 40 mg PO HS 05/29/14 Metoprolol Succinate [Toprol Xl] 75 mg PO DAILY 05/29/14 Ticagrelor [Brilinta] 90 mg PO BID 10/26/14 Nitroglycerin Sublingual 0.4 mg SL Q5M PRN #30 tab 03/23/17 [Nitrostat -] REVIEW OF SYSTEMS CONSTITUTIONAL: Absent: fever, chills, diaphoresis, generalized weakness, malaise, loss of appetite, weight change HEENT: Absent: rhinorrhea, nasal congestion, throat pain, throat swelling, difficulty swallowing, mouth swelling, ear pain, eye pain, visual changes CARDIOVASCULAR: Absent: chest pain, syncope, palpitations, irregular heart rate, lightheadedness, peripheral edema RESPIRATORY: Absent: cough, shortness of breath, dyspnea with exertion, orthopnea, wheezing, stridor, hemoptysis GASTROINTESTINAL: Absent: abdominal pain, abdominal distension, nausea, vomiting, diarrhea, constipation, melena, hematochezia GENITOURINARY: Absent: dysuria, frequency, urgency, hesitancy, hematuria, flank pain, genital pain MUSCULOSKELETAL: Absent: myalgia, arthralgia, joint swelling, back pain, neck pain SKIN: Absent: rash, itching, pallor HEMATOLOGIC/IMMUNOLOGIC: Absent: easy bleeding, easy bruising, lymphadenopathy, frequent infections ENDOCRINE: Absent: unexplained weight gain, unexplained weight loss, heat intolerance, cold intolerance NEUROLOGIC: Absent: headache, focal weakness or paresthesias, dizziness, unsteady gait, seizure, mental status changes, bladder or bowel incontinence PSYCHIATRIC: Absent: anxiety, depression, suicidal or homicidal ideation, hallucinations. PHYSICAL EXAMINATION Vital Signs - 24 hr 10/13/19 10/13/19 10/14/19 18:51 20:21 01:53 Temperature 99.6 F Pulse Rate 97 H Pulse Rate [ 88 70 Apical] Respiratory 18 16 18 Rate Blood Pressure 158/78 Blood Pressure 127/86 126/76 [Left Arm] O2 Sat by Pulse 100 98 98 Oximetry (%) GENERAL: Awake, alert, and fully oriented, in no acute distress. HEAD: Normal with no signs of trauma. EYES: Pupils equal, round and reactive to light, extraocular movements intact, sclera anicteric, conjunctiva clear. No lid lag. EARS, NOSE, THROAT: Ears normal, nares patent, oropharynx clear without exudates. Moist mucous membranes. NECK: Normal range of motion, supple without lymphadenopathy, JVD, or masses. LUNGS: Breath sounds equal, clear to auscultation bilaterally. No wheezes, and no crackles. No accessory muscle use. HEART: Regular rate and rhythm, normal S1 and S2 without murmur, rub or gallop. ABDOMEN: Soft, nontender, not distended, normoactive bowel sounds, no guarding, no rebound, no masses. No hepatomegaly or splenomegaly. MUSCULOSKELETAL: Normal range of motion at all joints. No bony deformities or tenderness. No CVA tenderness. UPPER EXTREMITIES: 2+ pulses, warm, well-perfused. No cyanosis. No clubbing. No peripheral edema. LOWER EXTREMITIES: 2+ pulses, warm, well-perfused. No calf tenderness. No peripheral edema. NEUROLOGICAL: Cranial nerves II-XII intact. Normal speech. Normal gait. PSYCHIATRIC: Cooperative. Good eye contact. Appropriate mood and affect. SKIN: Warm, dry, normal turgor, no rashes or lesions noted, normal capillary refill. Laboratory Results - last 24 hr 10/13/19 10/13/19 10/13/19 19:24 19:24 19:24 WBC 8.8 RBC 3.98 L Hgb 12.5 Hct 36.2 MCV 91.0 MCH 31.3 MCHC 34.4 RDW 13.7 Plt Count 159 MPV 8.6 Absolute Neuts (auto) 7.0 Neutrophils % 80.1 Lymphocytes % 11.8 Monocytes % 7.1 Eosinophils % 0.7 Basophils % 0.3 Nucleated RBC % 0 PT with INR 12.10 INR 1.03 PTT (Actin FS) 28.1 D-Dimer Sodium 141 Potassium 3.4 L Chloride 103 Carbon Dioxide 27 Anion Gap 11 BUN 17.3 Creatinine 1.4 H Est GFR (CKD-EPI)AfAm 67.42 Est GFR (CKD-EPI)NonAf 58.17 Random Glucose 133 H Calcium 9.0 Magnesium 2.1 Total Bilirubin 0.8 AST 21 ALT 50 Alkaline Phosphatase 89 Creatine Kinase 368 H Creatine Kinase Index 0.2 CK-MB (CK-2) 1.1 Troponin I < 0.02 Total Protein 7.5 Albumin 4.1 10/13/19 10/13/19 19:24 22:40 WBC RBC Hgb Hct MCV MCH MCHC RDW Plt Count MPV Absolute Neuts (auto) Neutrophils % Lymphocytes % Monocytes % Eosinophils % Basophils % Nucleated RBC % PT with INR INR PTT (Actin FS) D-Dimer 264 Sodium Potassium Chloride Carbon Dioxide Anion Gap BUN Creatinine Est GFR (CKD-EPI)AfAm Est GFR (CKD-EPI)NonAf Random Glucose Calcium Magnesium Total Bilirubin AST ALT Alkaline Phosphatase Creatine Kinase Creatine Kinase Index CK-MB (CK-2) Troponin I < 0.02 Total Protein Albumin ASSESSMENT/PLAN: Visit type - Emergency Visit Emergency Visit: Yes ED Registration Date: 10/13/19 Care time: The patient presented to the Emergency Department on the above date and was hospitalized for further evaluation of their emergent condition. - New Patient This patient is new to me today: Yes Date on this admission: 10/14/19 - Critical Care Critical Care patient: No 49 year old male with a PMHx notable for CAD s/p PR 2012 and again in 2014 with stent thrombosis. Arrives with chest pains Plan # Appreciate cardiology evaluation - Continue potline monitor - Serial enzymes - Send for 2D ECHO - NPO after midnight for likely stress imaging
[2019-10-14] MEDS ORDERED: ATORVASTATIN CA 80 MG TABLET (FP) ONE (01:09)
[2019-10-14 06:51] LABS: BASO % 0.5 % (0-2.0); EOS % 3.5 % (0-4.5); HEMATOCRIT 36.1 % (35.4-49); HEMOGLOBIN 12.1 GM/dL (11.7-16.9); LYMPH % 23.8 % (8-40); MCH 30.5 pg (25.7-33.7); MCHC 33.5 g/dl (32.0-35.9); MEAN CELL VOLUME 90.8 fl (80-96); MEAN PLT VOLUME 8.2 fl (7.5-11.1); MONO % 10.8 % (3.8-10.2); NEUT % 61.4 % (42.8-82.8); PLATELET COUNT 139 K/MM3 (134-434); RBC 3.97 M/mm3 (4.00-5.60); RDW 13.8 % (11.9-15.9); WHITE BLOOD COUNT 5.2 K/mm3 (4.0-10.0)
[2019-10-14 07:22] LABS: ALBUMIN 3.8 g/dl (3.4-5.0); ALK PHOS 89 U/L (45-117); ANION GAP 8 MMOL/L (8-16); BILIRUBIN,TOTAL 0.7 mg/dL (0.2-1); BLOOD UREA NITROGEN 14.7 mg/dL (7-18); CALCIUM 8.5 mg/dL (8.5-10.1); CHLORIDE 104 mmol/L (98-107); CO2 29 mmol/L (21-32); GLUCOSE,RANDOM 111 mg/dL (74-106); MAGNESIUM 2.3 mg/dL (1.8-2.4); PHOSPHOROUS 2.6 mg/dL (2.5-4.9); POTASSIUM 3.6 mmol/L (3.5-5.1); SGOT/AST 19 U/L (15-37); SGPT/ALT 41 U/L (13-61); SODIUM 141 mmol/L (136-145); TOT PROT 7.1 g/dl (6.4-8.2)
--- NOTE | 2019-10-14 09:37 | EKG ---
Test Reason : Blood Pressure : / mmHG Vent. Rate : 072 BPM Atrial Rate : 072 BPM P-R Int : 138 ms QRS Dur : 086 ms QT Int : 394 ms P-R-T Axes : 045 038 011 degrees QTc Int : 431 ms NORMAL SINUS RHYTHM NORMAL ECG WHEN COMPARED WITH ECG OF 21-MAR-2017 22:43, NO SIGNIFICANT CHANGE WAS FOUND Confirmed by CHRISTA LEGER MD ([id number]) on 10/14/2019 9:37:13 AM Referred By: Confirmed By:CHRISTA LEGER MD
[2019-10-14] MEDS ORDERED: ATENOLOL 25 MG TABLET (FP) ONE (09:49)
[2019-10-14] MEDS ORDERED: ASPIRIN 81 MG CHEWABLE TABLETS ONE (09:50)
[2019-10-14] MEDS ORDERED: ASPIRIN 81 MG CHEWABLE TABLETS PO SCH (10:00)
[2019-10-14] MEDS ORDERED: ATENOLOL 25 MG TABLET (FP) PO SCH (10:00)
--- NOTE | 2019-10-14 11:32 | CON.CARD ---
Cardiology Consult (text) - Consultation Consultation Note: Chief Complaint: Chest pain History of Present Illness: 49 yo male hx CAD s/p inferior STEMI 2013 and again in 2015 with stent thrombosis, htn, hld, here with cp. Was relaxing at beach yesterday and felt central chest tightness, worse with deep breaths. No radiation. No other sxs. [facility] diff than his prior mi's. No sob palps dizzy loc pnd orthopnea le edema. Tried nitro but only partially helped for a few minutes so came to ER. In er cp resolved, feels well now. - Past Medical History Cardio/Vascular: Yes: Hyperlipdemia, [place] - Alcohol/Substance Use Hx Alcohol Use: Yes (SOCIAL) - Smoking History Smoking history: Never smoked Have you smoked in the past 12 months: No Aproximately how many cigarettes per day: 0 - Social History Occupation: Works in [employer] at [employer] Medications - Allergies Allergies/Adverse Reactions: Allergies Allergy/AdvReac Type Severity Reaction Status Date / Time Penicillins Allergy unknown Verified 10/13/19 18:54 Current Medications Generic Name Dose Route Start Last Admin Trade Name Freq PRN Reason Stop Dose Admin Aspirin 81 mg 10/14/19 10:00 10/14/19 10:06 Asa - PO 81 mg DAILY ADRIANO Administration Atenolol 25 mg 10/14/19 10:00 10/14/19 10:06 Tenormin - PO 25 mg DAILY ADRIANO Administration Atorvastatin Calcium 40 mg 10/15/19 22:00 Lipitor - PO HS ADRIANO Heparin Sodium (Porcine) 1,000 unit 10/14/19 00:23 Heparin - IVPUSH PRN PRN Heparin Heparin Sodium (Porcine) 5,000 unit 10/14/19 00:23 Heparin - IVPUSH PRN PRN Heparin Nitroglycerin 0.4 mg 10/13/19 20:01 Nitrostat - SL Q5M PRN FOR CHEST PAIN Regadenoson 0.4 mg 10/14/19 11:45 Lexiscan IVPUSH 10/14/19 11:46 ONCE ONE Home Medications Medication Instructions Recorded Aspirin [ASA -] 81 mg PO DAILY 05/29/14 Atorvastatin Ca [Lipitor] 40 mg PO HS 05/29/14 Metoprolol Succinate [Toprol Xl] 75 mg PO DAILY 05/29/14 Ticagrelor [Brilinta] 90 mg PO BID 10/26/14 Nitroglycerin Sublingual 0.4 mg SL Q5M PRN #30 tab 03/23/17 [Nitrostat -] Family Disease History - Family Disease History Family Disease History: Heart Disease: Grandparent, Father, Mother Physical Exam Vital Signs: Vital Signs Period Temp Pulse Resp BP Sys/Santoyo Pulse Ox Last 24 Hr 99.6 F 70-97 16-18 126-158/76-86 98-100 nad no jvd rrr s1s2 no mrg cta bl nl eff aao3 no le e/c/c abd nt nd pos bs no jaundice diaphoresis pos dp pt no carotid bruits Laboratory Last Values WBC 5.2 K/mm3 (4.0-10.0) 10/14/19 06:18 RBC 3.97 M/mm3 (4.00-5.60) L 10/14/19 06:18 Hgb 12.1 GM/dL (11.7-16.9) 10/14/19 06:18 Hct 36.1 % (35.4-49) 10/14/19 06:18 MCV 90.8 fl (80-96) 10/14/19 06:18 MCH 30.5 pg (25.7-33.7) 10/14/19 06:18 MCHC 33.5 g/dl (32.0-35.9) 10/14/19 06:18 RDW 13.8 % (11.9-15.9) 10/14/19 06:18 Plt Count 139 K/MM3 (134-434) 10/14/19 06:18 MPV 8.2 fl (7.5-11.1) 10/14/19 06:18 Absolute Neuts (auto) 3.2 K/mm3 (1.5-8.0) 10/14/19 06:18 Neutrophils % 61.4 % (42.8-82.8) D 10/14/19 06:18 Lymphocytes % 23.8 % (8-40) D 10/14/19 06:18 Monocytes % 10.8 % (3.8-10.2) H 10/14/19 06:18 Eosinophils % 3.5 % (0-4.5) D 10/14/19 06:18 Basophils % 0.5 % (0-2.0) 10/14/19 06:18 Nucleated RBC % 0 % (0-0) 10/14/19 06:18 PT with INR 12.10 SEC (9.7-13.0) 10/13/19 19:24 INR 1.03 (0.83-1.09) 10/13/19 19:24 PTT (Actin FS) 38.4 SECONDS (25.2-36.5) H 10/14/19 09:21 D-Dimer 264 ng/ml (0-500) 10/13/19 19:24 Sodium 141 mmol/L (136-145) 10/14/19 06:18 Potassium 3.6 mmol/L (3.5-5.1) 10/14/19 06:18 Chloride 104 mmol/L (98-107) 10/14/19 06:18 Carbon Dioxide 29 mmol/L (21-32) 10/14/19 06:18 Anion Gap 8 MMOL/L (8-16) 10/14/19 06:18 BUN 14.7 mg/dL (7-18) 10/14/19 06:18 Creatinine 1.0 mg/dL (0.55-1.3) 10/14/19 06:18 Est GFR (CKD-EPI)AfAm 101.26 10/14/19 06:18 Est GFR (CKD-EPI)NonAf 87.37 10/14/19 06:18 Random Glucose 111 mg/dL (74-106) H 10/14/19 06:18 Hemoglobin A1c % 4.8 % (4.2-6.3) 10/14/19 06:18 Calcium 8.5 mg/dL (8.5-10.1) 10/14/19 06:18 Phosphorus 2.6 mg/dL (2.5-4.9) 10/14/19 06:18 Magnesium 2.3 mg/dL (1.8-2.4) 10/14/19 06:18 Total Bilirubin 0.7 mg/dL (0.2-1) 10/14/19 06:18 AST 19 U/L (15-37) 10/14/19 06:18 ALT 41 U/L (13-61) 10/14/19 06:18 Alkaline Phosphatase 89 U/L (45-117) 10/14/19 06:18 Creatine Kinase 368 U/L (26-308) H 10/13/19 19:24 Creatine Kinase Index 0.2 % (0.0-5.0) 10/13/19 19:24 CK-MB (CK-2) 1.1 ng/mL (0.5-3.6) 10/13/19 19:24 Troponin I < 0.02 ng/ml (0.00-0.05) 10/14/19 06:18 Total Protein 7.1 g/dl (6.4-8.2) 10/14/19 06:18 Albumin 3.8 g/dl (3.4-5.0) 10/14/19 06:18 cxr: clear lungs ecg: sr nl intervals no ischemic changes [facility] 2014: thrombotic occlusion LPL 1, in-stent--Promus NISSA. 50-60% mid LAD, 50- 60% d LAD MPI 05/22: 9:59 min (11 METs). no STs. inferolateral scar with no ischemia. EF 56% (inferolateral akinesis) Assessment/Plan 49 yo male hx CAD s/p inferior STEMI 2012 and again in 2014 with stent thrombosis, htn, hld, here with cp cad, mi, pci, chest pain: -here with cp with some atypical features, now completely resolved -no signs acs, trops negx3 -ecg w/o ischemic changes -given hx cad will eval further with echo and mibi, if benign then ok for dc from cardiac pov -cont asa, statin, bb hld: -cont statin htn: -cont bb
[2019-10-14] MEDS ORDERED: REGADENOSON 0.4 MG/5 ML PRE-FILLED SYRINGE IVPUSH ONE ×2 (11:45→12:44)
--- NOTE | 2019-10-14 12:44 | ECHO ---
Version: 1 Name: RADHA DORMAN Exam: Adult Echocardiogram Study Date: 10/14/2019, 11:12 AM Age: 49 Years MMode/2D Measurements & Calculations IVSd: 1.07 cm LVIDs: 2.9 cm LVIDd: 4.4 cm LVPWd: 1.02 cm LAV (MOD-bp): 50.5 ml LVOT diam: 2.04 cm Ao root diam: 3.1 cm LA dimension: 3.2 cm Doppler Measurements & Calculations MV E max neri: 87.8 cm/sec Med E/e': 11.9 MV A max neri: 75.7 cm/sec Med Peak E' Neri: 7.4 cm/sec MV E/A: 1.16 Lat E/e': 6.0 Lat Peak E' Neri: 14.6 cm/sec MR max P.9 mmHg Ao max P.0 mmHg Ao V2 max: 111.3 cm/sec TR max neri: 252.5 cm/sec TR max P.5 mmHg Left Ventricle Ejection Fraction = 50-55%. Mild basal inferolateral hypokinesis. Right Ventricle The right ventricle is normal in size and function. Atria Normal left and right atrial size and function. Mitral Valve There is mild mitral valve thickening. There is no mitral valve stenosis. There is trace to mild geronimo ral regurgitation. Tricuspid Valve The tricuspid valve is not well visualized, but is grossly normal. There is mild tricuspid regurgita tion. Aortic Valve The aortic valve opens well. No hemodynamically significant valvular aortic stenosis. No aortic regu rgitation is present. Pulmonic Valve The pulmonic valve is not well seen, but is grossly normal. Great Vessels The aortic root is normal size. Pericardium/Pleura There is no pericardial effusion. Summary Statements Ejection Fraction = 50-55%. Mild basal inferolateral hypokinesis. The right ventricle is normal in size and function. There is mild mitral valve thickening. There is trace to mild mitral regurgitation. There is mild tricuspid regurgitation. The aortic root is normal size. There is no pericardial effusion. MD Ladd *Lavelle 10/14/2019, 12:44 PM Ordering Physician: Wilberto Valderrama Performed By: Eugenia Batista
--- NOTE | 2019-10-14 13:33 | PN ---
Teaching Attending Note Name of Resident: Barrett Mckenzie ATTENDING PHYSICIAN STATEMENT I saw and evaluated the patient. I reviewed the resident's note and discussed the case with the resident. I agree with the resident's findings and plan as documented. SUBJECTIVE: seen at 9:30 am . No fever or chills. chest pain resolved this am . he denied SOB or palpitations. he rerpoted compliance with meds reports a normal stress 2 years ago denies LE edema . reprots being on beach and exercising in hot weather and not likely to be hydrating enough OBJECTIVE: NAD , awake, alert, cooperative and pleasant , MMM CV: RRR, no MRG , No JVD Lungs: CTAB Abd: soft, NT, ND, N LBS Ext : No edema or erythema on upper or lower extremities ASSESSMENT AND PLAN: 49 y/o gentleman with h/o CAD, s/p MO, s/p stents , HTN, HLP, who presented with chest pain. 1- chest pain. Unstable angina Vs . atypical. looks euvolemic - was loaded with as and placed on heparin gtt last nigth. PTT is subtherapeutic - appreciate card help - for a stress today - cont asa, statin, BB. - add lisinopril. he denies any allergy to ACEI/Arbs. - echo reviewed - depending on stress results will decide on next step and antiplt therapy. takes plavix q 3 days usually. has not take it in 3 weeks. 2- h/o HTN, HLP. cont statin, and BB. add ACEI 3- JANEY : likely prerenal . resolved dispo , depends on Stress test results . DC home Vs Transfer for cath
[2019-10-14] MEDS ORDERED: LISINOPRIL 5 MG TABLET (FP) PO SCH (13:45)
[2019-10-14 14:34] LABS: CHOLESTEROL 150 mg/dL (50-200); HDL CHOLESTEROL 34 mg/dL (40-60); LDL CHOLESTEROL (ONLY SJRH) 72 mg/dL (5-100); TRIGLYCERIDES 441 mg/dL (0-150)
[2019-10-14] MEDS ORDERED: LISINOPRIL 5 MG TABLET (FP) ONE (14:49)
[2019-10-14 17:29] VITALS: BP 121/90; PULSE 82; TEMP 98.3
--- NOTE | 2019-10-14 22:13 | DS ---
Physical Exam: SUBJECTIVE: Patient seen and examined. NAD. Endorses that chest pain improved and is "almost gone;" "Barely 1/10" pain. He feels ready for discharge. ROS negative except as above. OBJECTIVE: Vital Signs Period Temp Pulse Resp BP Sys/Santoyo Pulse Ox Last 24 Hr 98.3 F 70-101 16-20 121-132/55-90 96-100 PHYSICAL EXAM GENERAL: The patient is awake, alert, and fully oriented, in no acute distress. HEENT: NT, NC, sclera anicteric, conjunctiva clear. moist mucous membranes. LUNGS: Breath sounds equal, clear to auscultation bilaterally, no wheezes, no crackles, no accessory muscle use. HEART: Regular rate and rhythm, S1, S2 without murmur, rub or gallop. ABDOMEN: Soft, nontender, nondistended, normoactive bowel sounds, no guarding, no rebound, EXTREMITIES: 2+ pulses, warm, well-perfused, no edema. NEUROLOGICAL: Normal speech, gait not observed. PSYCH: Normal mood, normal affect. SKIN: Warm, dry, normal turgor, no rashes or lesions noted. LABS Laboratory Results - last 24 hr 10/13/19 10/14/19 10/14/19 22:40 06:18 06:18 WBC 5.2 RBC 3.97 L Hgb 12.1 Hct 36.1 MCV 90.8 MCH 30.5 MCHC 33.5 RDW 13.8 Plt Count 139 MPV 8.2 Absolute Neuts (auto) 3.2 Neutrophils % 61.4 D Lymphocytes % 23.8 D Monocytes % 10.8 H Eosinophils % 3.5 D Basophils % 0.5 Nucleated RBC % 0 PTT (Actin FS) Sodium 141 Potassium 3.6 Chloride 104 Carbon Dioxide 29 Anion Gap 8 BUN 14.7 Creatinine 1.0 Est GFR (CKD-EPI)AfAm 101.26 Est GFR (CKD-EPI)NonAf 87.37 Random Glucose 111 H Hemoglobin A1c % Calcium 8.5 Phosphorus 2.6 Magnesium 2.3 Total Bilirubin 0.7 AST 19 ALT 41 Alkaline Phosphatase 89 Troponin I < 0.02 < 0.02 Total Protein 7.1 Albumin 3.8 Triglycerides 441 H Cholesterol 150 Total LDL Cholesterol 72 HDL Cholesterol 34 L 10/14/19 10/14/19 06:18 09:21 WBC RBC Hgb Hct MCV MCH MCHC RDW Plt Count MPV Absolute Neuts (auto) Neutrophils % Lymphocytes % Monocytes % Eosinophils % Basophils % Nucleated RBC % PTT (Actin FS) 38.4 H Sodium Potassium Chloride Carbon Dioxide Anion Gap BUN Creatinine Est GFR (CKD-EPI)AfAm Est GFR (CKD-EPI)NonAf Random Glucose Hemoglobin A1c % 4.8 Calcium Phosphorus Magnesium Total Bilirubin AST ALT Alkaline Phosphatase Troponin I Total Protein Albumin Triglycerides Cholesterol Total LDL Cholesterol HDL Cholesterol HOSPITAL COURSE: 49 YO M [facility] [place] x2, s/p stents in 2012 and 2014, HLD, and HTN p/w nonexertional chest pain unimproved with sublingual nitroglycerin. In ED, pt was given ASA. EKG showed normal sinus rhythm. Trops negative X2. Admitted to r/o ACS; likely unstable angina. Repeat trop was negative. Pt was placed on heparin drip. Echo showed mild mitral valve thickening, mild tricuspid regurg, trace-mild mitral regurg. Exercise results showed no ischemic changes and nuclear results were consistent with previous infarction. Pts chest pain improved and is stable for discharge. Cr was elevated at 1.4 from baseline of 1.1. JANEY improved with fluids. HTN was managed with atenolol. Triglycerides were elevated at 441. Lipitor was given for HLD. Date of Admission:10/13/19 CXR: no acute pathology Echo: mild mitral valve thickening, mild tricuspid regurg, trace-mild mitral regurg. Exercise Results: no diagnostic ischemic ST changes and no arrhythmias during t he infusion Nuclear results: moderate to large sized, severe intensity primarily fixed inferior/inferolateral defect consistent with prior infarction with minimal frank-infarct ischemia. LVEF: 38% with severe inferior and inferolateral hypokinesis. No evidence of transient ischemic dilatation Date of Discharge: 10/14/19 Minutes to complete discharge: 50 Discharge Summary Problems reviewed: Yes Reason For Visit: CHEST PAIN WITH HIGH RISK OF ACUTE CORONARY Condition: Stable - Instructions Diet, Activity, Other Instructions: You came in with chest pain at rest that continued despite taking nitroglycerin prior to arrival to ED. You were given medication to help with your chest pain and given blood thinners while ruling out other cardiac conditions. EKG showed that your heart had a normal rhythm. Your heart proteins were not abnormal. Chest x-ray showed no acute conditions. Echocardiogram of your heart showed milld mitral regurgitation but no new changes. You were evaluated by a air bag stripper. stress test showed no ischemic changes. The Nuclear Results was consistent with your prior heart attack. Your chest pain improved. You are stable for discharge. FOLLOW-UP Please follow-up with air bag stripper, Dr. Mathew, for follow-up of your cardiac conditions (High blood pressure, past heart attacks/stents). Please follow-up with primary care physician, Dr. Meade, for general health maintenance. MEDICATIONS Please continue with your home medications. It is important to take all the medications as scheduled, even the Plavix. Please start taking lisinopril 5 mg orally once a day. ( new medication ) Please continue following a low sodium/low fat/low sugar/low carb diet. If you experience new, worsening, or concerning symptoms, such as Chest pain, Shortness of breath, nausea, vomiting, abdominal pain, etc. please return to the Emergency Department or call 911. Since you are started on Lisinopril , you need blodo work to check your kidney and electrolytes in 1 week ( please ask primary or dr. Mathew to do it ) good luck Referrals: Guido Mathew MD [Staff Physician] - Angelo Meade MD [Primary Care Provider] - Disposition: HOME - Home Medications Comprehensive Discharge Medication List: Ambulatory Orders Aspirin [ASA -] 81 mg PO DAILY 05/29/14 Atorvastatin Ca [Lipitor] 40 mg PO HS 05/29/14 Nitroglycerin Sublingual [Nitrostat -] 0.4 mg SL Q5M PRN #30 tab 03/23/17 Allopurinol [Zyloprim -] 100 mg PO DAILY 10/14/19 Atenolol [Tenormin -] 25 mg PO DAILY 10/14/19 Clopidogrel Bisulfate [Clopidogrel] 75 mg PO Q3D 10/14/19 Lisinopril [Prinivil] 5 mg PO DAILY 30 Days #30 tablet 10/14/19 This patient is new to me today: Yes Date on this admission: 10/14/19 Emergency Visit: Yes ED Registration Date: 10/13/19 Care time: The patient presented to the Emergency Department on the above date and was hospitalized for further evaluation of their emergent condition. Critical Care patient: No - Discharge Referral Referred to [facility] No ATTENDING PHYSICIAN STATEMENT I saw and evaluated the patient. I reviewed the resident's note and discussed the case with the resident. I agree with the resident's findings and plan as documented. SUBJECTIVE: OBJECTIVE: ASSESSMENT AND PLAN:
[2019-10-15] MEDS ORDERED: ATORVASTATIN CA 40 MG TABLET (FP) PO SCH (22:00)
--- NOTE | 2019-10-16 11:29 | EKG ---
Test Reason : Blood Pressure : / mmHG Vent. Rate : 097 BPM Atrial Rate : 097 BPM P-R Int : 142 ms QRS Dur : 086 ms QT Int : 330 ms P-R-T Axes : 056 034 027 degrees QTc Int : 419 ms NORMAL SINUS RHYTHM NORMAL ECG WHEN COMPARED WITH ECG OF 21-MAR-2017 22:43, NON-SPECIFIC CHANGE IN ST SEGMENT IN INFERIOR LEADS NONSPECIFIC T WAVE ABNORMALITY, IMPROVED IN INFERIOR LEADS Confirmed by ARSEN DELVALLE, CHRISTA ([id number]) on 10/16/2019 11:28:59 AM Referred By: Confirmed By:CHRISTA LEGER MD
== END 2019-10-14 17:29 | disposition home or self-care (01) | DRG 313 ==
LOC: SUPCPDRO 18:43 → JER 18:43 → JERBED 21:29
PROVIDERS: ADMIT Internal Medicine; ATTEND Internal Medicine
DX: R07.89 Other chest pain (principal); N17.9 Acute kidney failure, unspecified; I10 Essential (primary) hypertension; E78.5 Hyperlipidemia, unspecified; I25.2 Old myocardial infarction; I25.10 Atherosclerotic heart disease of native coronary artery without angina pectoris; Z95.5 Presence of coronary angioplasty implant and graft
CPT/HCPCS: 36415; 71046-TC-FY; 78452-TC; 80053; 80061; 82550; 82553; 83036; 83721; 83735; 84100; 84484; 85025; 85379; 85610; 85730; 93005; 93010; 93017; 93306-TC; 99285-25; A9502; J1644; J2785; U0003

== ENCOUNTER 2020-03-21 12:31 | Emergency (ER) | payer BC ==
[2020-03-21] MEDS ORDERED: ACETAMINOPHEN 325 MG TABLET (FP) PO ONE (12:49)
[2020-03-21] MEDS ORDERED: ACETAMINOPHEN 325 MG TABLET (FP) ONE (13:14)
[2020-03-21 13:44] VITALS: TEMP 99; BMI 29.0
[2020-03-21 14:04] VITALS: BP 115/78; PULSE 77
[2020-03-21 14:24] LABS: BASO % 0.4 % (0-2.0); EOS % 1.9 % (0-4.5); HEMATOCRIT 37.6 % (35.4-49); HEMOGLOBIN 12.5 GM/dl (11.7-16.9); LYMPH % 8.7 % (8-40); MCH 30.3 pg (25.7-33.7); MCHC 33.2 g/dl (32.0-35.9); MEAN CELL VOLUME 91.2 fl (80-96); MEAN PLT VOLUME 9.1 fl (7.5-11.1); MONO % 7.8 % (3.8-10.2); NEUT % 81.2 % (42.8-82.8); PLATELET COUNT 183 K/MM3 (134-434); RBC 4.12 M/mm3 (4.00-5.60); RDW 12.8 % (11.9-15.9); WHITE BLOOD COUNT 8.5 K/mm3 (4.0-10.8)
[2020-03-21 14:25] LABS: CALCIUM 9.1 mg/dL (8.5-10.1)
[2020-03-21 14:26] LABS: ALBUMIN 4.1 g/dl (3.4-5.0); BLOOD UREA NITROGEN 14.5 mg/dL (7-18)
[2020-03-21 14:30] LABS: BILIRUBIN,TOTAL 0.4 mg/dL (0.2-1)
[2020-03-21 14:31] LABS: TOT PROT 7.7 g/dl (6.4-8.2)
[2020-03-21] MEDS ORDERED: predniSONE 20 MG TABLET (UD) PO ONE (17:21)
[2020-03-21] MEDS ORDERED: predniSONE 20 MG TABLET (UD) ONE (17:26)
[2020-03-21] MEDS ORDERED: IBUPROFEN 400 MG TABLET (FP) PO ONE ×2 (17:26→17:27)
== END 2020-03-21 17:49 | disposition home or self-care (01) ==
LOC: FER 12:31
DX: R07.9 Chest pain, unspecified (principal)
CPT/HCPCS: 36415; 71045-TC-FY; 71275-TC; 80053; 84484; 85025; 87804; 93005; 99285-25; C9803; U0003

== ENCOUNTER 2021-03-31 18:54 | Emergency (ER) | payer BC ==
[2021-03-31 19:01] VITALS: BP 122/70; PULSE 86; TEMP 98.4; BMI 29.4
[2021-03-31 23:10] LABS: INR 0.97 (0.83-1.09); PROTHROMBIN TIME (PATIENT) 11.3 SEC (9.7-13.0)
[2021-04-01 00:11] LABS: ALBUMIN 3.9 g/dl (3.4-5.0); CALCIUM 9.2 mg/dL (8.5-10.1)
[2021-04-01 00:15] LABS: CREATININE 1.1 mg/dL (0.55-1.3)
[2021-04-01 00:16] LABS: BILIRUBIN,TOTAL 0.2 mg/dL (0.2-1); TOT PROT 7.4 g/dl (6.4-8.2)
[2021-04-01 00:19] LABS: BASO % 0.9 % (0-2.0); EOS % 3.9 % (0-4.5); HEMATOCRIT 37.1 % (35.4-49); LYMPH % 25.6 % (8-40); MCH 31.7 pg (25.7-33.7); MEAN CELL VOLUME 90.6 fl (80-96); MEAN PLT VOLUME 7.9 fl (7.5-11.1); MONO % 10.8 % (3.8-10.2); NEUT % 58.8 % (42.8-82.8); PLATELET COUNT 193 10^3/uL (134-434); RBC 4.09 M/mm3 (4.00-5.60); RDW 13.4 % (11.9-15.9); WHITE BLOOD COUNT 4.9 K/mm3 (4.0-10.0)
== END 2021-04-01 00:47 | disposition home or self-care (01) ==
LOC: JERFT 18:54 → JER 18:54
DX: R04.0 Epistaxis (principal)
CPT/HCPCS: 36415; 80053; 85025; 85610; 85730; 99283-25

== ENCOUNTER 2021-11-14 09:02 | Emergency (ER) | payer BC ==
[2021-11-14 09:18] VITALS: BP 125/89; PULSE 95; RESP 18; TEMP 98.7; BMI 29.0
[2021-11-14] MEDS ORDERED: IBUPROFEN 400 MG TABLET (FP) PO ONE ×2 (09:37→09:44)
== END 2021-11-14 09:57 | disposition home or self-care (01) ==
LOC: FER 09:02
DX: J06.9 Acute upper respiratory infection, unspecified (principal)
CPT/HCPCS: 0241U-QW; 87651; 99283-25

== ENCOUNTER 2023-04-22 14:30 | Emergency (ER) | payer OTHER, BC ==
[2023-04-22 14:38] VITALS: BP 127/78; PULSE 69; RESP 17; TEMP 98.8; BMI 29.7
[2023-04-22] MEDS ORDERED: DIPHTH,PERTUSS(ACELL),TET 0.5 ML DISP.SYRIN IM ONE ×2 (15:39→15:59)
[2023-04-22 16:01] LABS: BASO % 0.5 % (0-2.0); EOS % 3.6 % (0-4.5); HEMATOCRIT 37.8 % (35.4-49); HEMOGLOBIN 12.9 GM/dL (11.7-16.9); LYMPH % 12.6 % (8-40); MCH 30.8 pg (25.7-33.7); MEAN CELL VOLUME 90.6 fl (80-96); MEAN PLT VOLUME 7.9 fl (7.5-11.1); MONO % 7.4 % (3.8-10.2); NEUT % 75.9 % (42.8-82.8); PLATELET COUNT 175 10^3/uL (134-434); RBC 4.18 M/mm3 (4.00-5.60); RDW 13.8 % (11.9-15.9); WHITE BLOOD COUNT 7.8 K/mm3 (4.0-10.0)
[2023-04-22 16:19] LABS: POTASSIUM 3.9 mmol/L (3.5-5.1)
[2023-04-22 16:21] LABS: ALBUMIN 4.3 g/dl (3.4-5.0); BLOOD UREA NITROGEN 15.4 mg/dL (7-18); CALCIUM 9.5 mg/dL (8.5-10.1)
[2023-04-22 16:25] LABS: CREATININE 1.2 mg/dL (0.55-1.3)
[2023-04-22 16:27] LABS: BILIRUBIN,TOTAL 0.4 mg/dL (0.2-1); TOT PROT 7.9 g/dl (6.4-8.2)
[2023-04-22] MEDS ORDERED: BACITRACIN ZINC 15 GM TUBE TOPICAL OINTMENT ONE (16:35)
[2023-04-22] MEDS ORDERED: BACITRACIN ZINC 15 GM TUBE TOPICAL OINTMENT TP ONE (16:35)
[2023-04-22 17:15] LABS: HIV INTERPRETATION NEGATIVE (NEGATIVE)
== END 2023-04-22 16:42 | disposition home or self-care (01) ==
LOC: JERFT 14:30
PROC: 3E0234Z Introduction of Serum, Toxoid and Vaccine into Muscle, Percutaneous Approach (ICD-10-PCS; principal; 2023-04-22)
DX: S40.812A Abrasion of left upper arm, initial encounter (principal); Z77.21 Contact with and (suspected) exposure to potentially hazardous body fluids
CPT/HCPCS: 36415; 80053; 85025; 86704; 86803; 87340; 87389; 87517; 90715; 99283-25